=== PATIENT | male | born 1995 | race Caucasian/White ===

== ENCOUNTER 2017-03-18 09:01 | Emergency (ER) | payer OTHER ==
[2017-03-18] MEDS: IBUPROFEN LIQUID (PED) 20 MG/ML CUP PO (11:43)
[2017-03-18] MEDS: ACETAMINOPHEN 650MG/20.3ML CUP NGT (11:43)
== END 2017-03-18 14:08 | disposition home or self-care (01) ==
LOC: FTE 09:01
DX: J10.1 Influenza due to other identified influenza virus with other respiratory manifestations (principal)
CPT/HCPCS: 71010; 87400; 99284-25

== ENCOUNTER 2017-08-02 22:27 | Emergency (ER) | payer OTHER | END 2017-08-03 04:17 | disposition home or self-care (01) | LOC: FTE 22:27 | DX: M25.512 Pain in left shoulder (principal) | CPT/HCPCS: 73030; 99283-25 ==